=== PATIENT | male | born 1980 | race American Indian/Alaskan Native ===

== ENCOUNTER 2017-03-28 14:54 | Emergency (ER) | payer MEDICAID, OTHER ==
[2017-03-28 15:05] VITALS: O2SAT 100
--- NOTE | 2017-03-28 15:32 | ED PDOC ---
HPI: CCC, URI, Sore Throat Time Seen by Provider: 03/28/17 15:15 Chief Complaint (Nursing): ENT Problem Chief Complaint (Provider): ENT Problem History Per: Patient History/Exam Limitations: no limitations Have you had recent travel within the past 21 days to any of the following countries: [place], [place], [place] or [place]?: No Onset/Duration Of Symptoms: Days Current Symptoms Are (Timing): Still Present Associated Symptoms: Fever. denies: Cough, Nausea Ear Symptoms: Bilateral: External Ear Redness Severity: Mild Additional Complaint(s): 36 y/o male patient presenting to the ED with dental pain. Pt states that on March 02 he had dental surgery to remove his bottom wisdom teeth on both sides. PT states that he went back to the Dentist on because he was in pain, dealing with swelling, ear pain, headache and fever. He was prescribed Clindamycin, motrin, codeine. But he is not feeling any symptoms resolution. He is now experiencing acid reflux due to the combination of taking antibiotics, percocet, motrin and codeine. He is scheduled to see the specialist on Sunday for reevaluation. Past Medical History Reviewed: Historical Data, Nursing Documentation, Vital Signs Vital Signs: Last Vital Signs Temp 98.4 F 03/28/17 15:00 Pulse 87 03/28/17 15:00 Resp 18 03/28/17 15:00 BP 150/81 03/28/17 15:00 Pulse Ox 100 03/28/17 16:08 - Medical History PMH: No Chronic Diseases - Surgical History Surgical History: No Surg Hx - Family History Family History: States: Unknown Family Hx - Home Medications Home Medications: Ambulatory Orders Medication Instructions Recorded Cephalexin [cephalexin] 500 mg PO BID #20 cap 03/29/16 - Allergies Allergies/Adverse Reactions: Allergies Allergy/AdvReac Type Severity Reaction Status Date / Time No Known Allergies Allergy Verified 03/29/16 19:13 Review of Systems ROS Statement: Except As Marked, All Systems Reviewed And Found Negative Constitutional: Positive for: Fever ENT: Positive for: Ear Pain (Redness Bilaterally, Right ear pain, tenderness, facial swelling to right side ) Respiratory: Negative for: Shortness of Breath Gastrointestinal: Positive for: Nausea (Acidreflux ). Negative for: Vomiting Physical Exam - Reviewed Nursing Documentation Reviewed: Yes Vital Signs Reviewed: Yes - Physical Exam Appears: Positive for: Non-toxic, No Acute Distress Head Exam: Positive for: ATRAUMATIC, NORMAL INSPECTION, NORMOCEPHALIC Skin: Positive for: Normal Color, Warm ENT: Negative for: Normal ENT Inspection (TMs WNL bilaterally, Right Side Facial edema over mandible, Tender to palpation) Respiratory: Positive for: Normal Breath Sounds. Negative for: Respiratory Distress Neurologic/Psych: Positive for: Alert, Oriented. Negative for: Motor/Sensory Deficits - Laboratory Results Result Diagrams: 03/28/17 16:14 03/28/17 16:14 - ECG O2 Sat by Pulse Oximetry: 100 (RA) Pulse Ox Interpretation: Normal Medical Decision Making Medical Decision Making: Time: 1515 Initial impression: Initial plan: --MAXILLOFACIAL --CMP --CBC --MORPHINE 2MG Labs resulted and reviewed with Pt who demonstrated full understanding. CT Impression: Prominent right greater than left submandibular lymph nodes measuring up to approximately 11 mm in short axis. Additional prominent lymph nodes are evident bilaterally throughout the neck. No focal fluid collection or drainable abscess identified. Advised to follow up with Dentist as scheduled on Sunday. Continue with Motrin , Percocet and Clinda as prescribed. Scribe Attestation: Documented by Casi Culver acting as a scribe for FUNMILAYO Marquez MD Scribe Attestation: All medical record entries made by the Scribe were at my direction and personally dictated by me. I have reviewed the chart and agree that the record accurately reflects my personal performance of the history, physical exam, medical decision making, and the department course for this patient. I have also personally directed, reviewed, and agree with the discharge instructions and disposition. Disposition - Clinical Impression Clinical Impression: Lymphadenitis - Patient ED Disposition Is Patient to be Admitted: No - Disposition Disposition: Routine/Home Disposition Time: 19:49 Condition: STABLE Instructions: Lymphadenopathy (ED) Print Language: GUYANESE
[2017-03-28 16:19] LABS: BASO % 0.6 % (0.0-2.0); EOS # 0.3 K/uL (0.0-0.7); EOS % 3.7 % (0.0-4.0); HEMATOCRIT 44.5 % (35.0-51.0); LYMPH # 2.2 K/uL (1.0-4.3); LYMPH % 31.1 % (20.0-40.0); MEAN CELL VOLUME 90.2 fl (80.0-94.0); MEAN CORPUSCULAR HGB CONC 33.3 g/dL (33.0-37.0); MEAN PLATELET VOLUME 9.4 fl (7.2-11.7); MONO # 0.6 K/uL (0.0-0.8); MONO % 8.2 % (0.0-10.0); NEUT % 56.4 % (50.0-75.0); NRBC % 0.1 % (0.0-0.0); RED CELL DISTRIBUTION WIDTH 13.5 % (11.5-14.5); WHITE BLOOD COUNT 7.2 K/uL (4.8-10.8)
[2017-03-28 16:39] LABS: ALB/GLOB RATIO 1.6 (1.0-2.1); ALKALINE PHOSPHATASE 60 U/L (38-126); ALT/SGPT 61 U/L (21-72); AST/SGOT 35 U/L (17-59); BILIRUBIN,TOTAL 0.3 mg/dl (0.2-1.3); BLOOD UREA NITROGEN 12 mg/dl (9-20); CALCIUM 9.8 mg/dL (8.4-10.2); CARBON DIOXIDE 27 mmol/L (22-30); CHLORIDE 102 mmol/L (98-107); GFR AFRICAN-AMERICAN > 60; GLUCOSE,RANDOM 87 mg/dL (75-110); POTASSIUM 4.2 MMOL/L (3.6-5.0); SODIUM 141 mmol/l (132-148); TOTAL PROTEIN 8.3 G/DL (6.3-8.2)
--- NOTE | 2017-03-28 18:52 | CT ---
CT maxillofacial bones with IV contrast Indication: Right sided mandibular swelling, r/o abscess Comparison: None available Technique: Axial computed tomography images were obtained of the maxillofacial bones following the administration of 80 mL Omnipaque 300 intravenous contrast. Coronal and sagittal reformatted images were generated and reviewed. This CT exam was performed using 1 or more of the falling dose reduction techniques: Automated exposure control, adjustment of the MAA and/or kV according to patient size, and/or use of iterative reconstruction technique. Radiation dose: Total exam DLP = 780.16 mGy-cm. Findings: Prominent right greater than left submandibular lymph nodes measuring up to approximately 11 mm in short axis. Additional prominent lymph nodes are evident bilaterally throughout the neck. No focal fluid collection or abscess identified. Evidence of remote left nasal bone fracture. The facial bones appear intact without acute fracture. Orbits appear unremarkable. Temporomandibular joints appear located. Mastoid air cells appear clear without air-fluid levels. Mucosal polyp/cysts within the sphenoid sinus and bilateral maxillary sinuses. The visualized paranasal sinuses without air-fluid levels. The visualized brain appear unremarkable. Visualized portions of thyroid gland appear unremarkable. Impression: Prominent right greater than left submandibular lymph nodes measuring up to approximately 11 mm in short axis. Additional prominent lymph nodes are evident bilaterally throughout the neck. No focal fluid collection or drainable abscess identified.
[2017-03-28 20:04] VITALS: BP 147/83; PULSE 76; RESP 16; TEMP 98.3
== END 2017-03-28 20:02 | disposition home or self-care (01) ==
LOC: H.ER 14:54
DX: I88.9 Nonspecific lymphadenitis, unspecified (principal)